=== PATIENT | female | born 1950 | race Caucasian/White ===

== ENCOUNTER 2019-06-08 14:17 | Emergency (ER) | payer MEDICARE, MEDICAID ==
[~2019-06-08] VITALS: Ht 162.6 cm; Wt 47.7 kg
[2019-06-08 14:30] VITALS: BP 145/95
[2019-06-08] MEDS ORDERED: CEPH250T PO (15:39)
[2019-06-08] MEDS ORDERED: ibuprofen tablet 400 MG TABLET PO ONE (15:50)
== END 2019-06-08 16:15 | disposition home or self-care (01) ==
LOC: ER 14:18
DX: L08.9 Local infection of the skin and subcutaneous tissue, unspecified (principal); Z88.5 Allergy status to narcotic agent; Z79.2 Long term (current) use of antibiotics
CPT/HCPCS: 99283

== ENCOUNTER 2022-07-08 14:03 | Emergency (ER) | payer BC, MEDICAID ==
[~2022-07-08] VITALS: Ht 162.6 cm; Wt 50.0 kg
[2022-07-08 15:25] VITALS: BP 209/99
[2022-07-08] MEDS: ketorolac trometh. 30mg/ml inj. IM SCH ×2 (18:02→18:03)
[2022-07-08] MEDS ORDERED: TRAZ-251 PO (19:23)
== END 2022-07-08 19:45 | disposition home or self-care (01) ==
LOC: ER 14:03
DX: M25.561 Pain in right knee (principal); M25.551 Pain in right hip; M54.50 Low back pain, unspecified; G47.00 Insomnia, unspecified; F17.200 Nicotine dependence, unspecified, uncomplicated; Z98.890 Other specified postprocedural states; Z88.5 Allergy status to narcotic agent; Z79.899 Other long term (current) drug therapy
CPT/HCPCS: 29505; 72220; 73564; 96372; 99284; J1885